=== PATIENT | female | born 1960 | race Caucasian/White ===

== ENCOUNTER 2021-04-12 10:37 | Outpatient (REF) | payer OTHER, SELFPAY ==
--- NOTE | 2021-04-12 10:45 | MHC.AU.P13 ---
Hearing Instrument Problem Date of Visit: 04/12/21 Right Ear: Emd Teacher: Oticon Model: Xceed 2 BTE UP Serial Number: [id number] Repair Warranty: 04/22/2023 Loss and Damage Warranty: 04/22/2023 Battery Size: 675 Color: [place] Brown Tubing: #13TT Type of Mold: Rahul shell earmold Dispensed By: [facility] Date of Fittin04/13/2020 Left Ear: Emd Teacher: Oticon Model: Xceed 2 BTE UP Serial Number: [id number] Repair Warranty: 04/22/2023 Loss and Damage Warranty: 04/22/2023 Battery Size: 675 Color: [place] Brown Type of Mold: Rahul shell Dispensed By: [facility] Date of Fittin04/13/2020 Follow-Up Summary: Patient dropped off right aid - tubing broke. Hearing aid cleaned and earmold retubed - amplifying clearly. Recommendations: Recommendations: Hearing instrument follow-up or maintenance as needed. Signature: Provider:
== END 2021-04-12 10:38 | disposition home or self-care (01) ==
LOC: HO.HAP 10:37
PROVIDERS: Visit Provider Internal Medicine
DX: Z13.89 Encounter for screening for other disorder (principal)

== ENCOUNTER 2021-04-18 10:09 | Outpatient (REF) | payer SELFPAY | END 2021-04-18 10:10 | disposition home or self-care (01) | LOC: HO.HAP 10:09 | PROVIDERS: Visit Provider Internal Medicine | DX: Z46.1 Encounter for fitting and adjustment of hearing aid (principal); H90.3 Sensorineural hearing loss, bilateral | CPT/HCPCS: 92593 ==

== ENCOUNTER 2022-04-23 13:37 | Outpatient (REF) | payer SELFPAY | END 2022-04-23 13:38 | disposition home or self-care (01) | LOC: HO.HAP 13:37 | PROVIDERS: Visit Provider Internal Medicine | DX: Z13.89 Encounter for screening for other disorder (principal) ==

== ENCOUNTER 2022-09-25 15:58 | Outpatient (REF) | payer SELFPAY ==
--- NOTE | 2022-09-25 16:17 | MHC.AU.HFU ---
Hearing Instrument Follow-Up- Binaural Date of Visit: 09/25/22 Right Ear: Oticon Xceed 2 BTE UP, [id number], chestnut brown Repair Warranty: 04/22/2023 Loss and Damage Warranty: 04/22/2023 Battery Size: 675 Tubing: Tube lock Type of Mold: Rahul shell earmold Dispensed By: [facility] Date of Fittin04/13/2020 Left Ear: Oticon Xceed 2 BTE UP, [id number], [place] Brown Repair Warranty: 04/22/2023 Loss and Damage Warranty: 04/22/2023 Battery Size: 675 Tubing: Tube lock Type of Mold: Rahul shell Dispensed By: [facility] Date of Fittin04/13/2020 Follow-Up Summary: The patient recently got a new iPhone and is having trouble pairing her hearing aids to her new iPhone. I paired the hearing aids to her iPhone with no issue. No other concerns reported at this time. No charge. Diagnosis Code(s): Primary Diagnosis: H90.3 Bilateral Sensorineural Hearing Loss Signature: Provider: Preet Fitzgerald, CCC-A
== END 2022-09-25 15:59 | disposition home or self-care (01) ==
LOC: HO.HAP 15:58
PROVIDERS: Visit Provider Internal Medicine
DX: Z13.89 Encounter for screening for other disorder (principal)

== ENCOUNTER 2023-02-15 14:56 | Outpatient (REF) | payer SELFPAY | END 2023-02-15 14:57 | disposition home or self-care (01) | LOC: HO.HAP 14:56 | PROVIDERS: Visit Provider Internal Medicine | DX: Z13.89 Encounter for screening for other disorder (principal) ==

== ENCOUNTER 2023-04-10 13:49 | Outpatient (REF) | payer SELFPAY ==
--- NOTE | 2023-04-11 09:54 | MHC.AU.HA3 ---
Hearing Instrument Follow-Up- Binaural Date of Visit: 04/10/23 Right Ear: Make, Model, Color, Serial Number: Oticon Xceed 2 BTE UP SN: [id number] Color: [place] brown Asw Specialist Repair Warranty: 04/22/2023 Asw Specialist Loss and Damage Warranty: 04/22/2023 Battery Size: 675 Earmold/Dome/CShell/SlimTip:MicronSonic M45 full shell Dispensed By: [facility] Date of Fittin04/13/2020 Left Ear: Make, Model, Color, Serial Number: Oticon Xceed 2 BTE UP SN: [id number] Color: [place] Brown Asw Specialist Repair Warranty: 04/22/2023 Asw Specialist Loss and Damage Warranty: 04/22/2023 Battery Size: 675 Earmold/Dome/CShell/SlimTip: MicronSonic M45 full shell Dispensed By: [facility] Date of Fittin04/13/2020 Follow-Up Summary: Lina reported that her new ear molds are too hard, tight, and difficult to insert. She had her new ear molds with her but no tubing attached, as she has been wearing her old ear molds. Impressions taken, bilaterally, without incident for remakes. Will reorder in softer M2000 material. Lina also reported the pink and purple swirl colors are too bright and she would prefer more muted colors. Explained these are the colors this ear mold dressage instructor uses and there is no guarantee that the colors will be any duller. Advised changing colors to clear or beige if concerned with brightness; however, Lina wanted to stay with pink and purple swirl and asked for more purple to be swirled in than pink. Recommendations: Patient will be contacted when materials have arrived. Diagnosis Code(s): Primary Diagnosis: H90.3 Bilateral Sensorineural Hearing Loss Signature: Provider: Mendy Esqueda, [facility]
== END 2023-04-10 13:50 | disposition home or self-care (01) ==
LOC: HO.HAP 13:49
PROVIDERS: Visit Provider Internal Medicine
DX: Z13.89 Encounter for screening for other disorder (principal)

== ENCOUNTER 2023-05-22 10:00 | Outpatient (REF) | payer SELFPAY | END 2023-05-22 10:01 | disposition home or self-care (01) | LOC: HO.HAP 10:00 | PROVIDERS: Visit Provider Internal Medicine | DX: Z13.89 Encounter for screening for other disorder (principal) ==

== ENCOUNTER 2023-10-09 15:56 | Outpatient (REF) | payer SELFPAY | END 2023-10-09 15:57 | disposition home or self-care (01) | LOC: HO.HAP 15:56 | PROVIDERS: Visit Provider Internal Medicine | DX: Z13.89 Encounter for screening for other disorder (principal) ==

== ENCOUNTER 2023-10-16 15:42 | Outpatient (REF) | payer SELFPAY | END 2023-10-16 15:43 | disposition home or self-care (01) | LOC: HO.HAP 15:42 | PROVIDERS: Visit Provider Internal Medicine | DX: Z13.89 Encounter for screening for other disorder (principal) ==

== ENCOUNTER 2024-01-21 13:03 | Outpatient (REF) | payer SELFPAY | END 2024-01-21 13:04 | disposition home or self-care (01) | LOC: HO.HAP 13:03 | PROVIDERS: Visit Provider Internal Medicine | DX: Z13.89 Encounter for screening for other disorder (principal) ==

== ENCOUNTER 2024-04-22 13:54 | Outpatient (REF) | payer SELFPAY | END 2024-04-22 13:55 | disposition home or self-care (01) | LOC: HO.HAP 13:54 | PROVIDERS: Visit Provider Internal Medicine | DX: Z13.89 Encounter for screening for other disorder (principal) ==

== ENCOUNTER 2025-02-12 08:30 | Outpatient (REF) | payer SELFPAY ==
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
== END 2025-02-12 08:31 | disposition home or self-care (01) ==
LOC: HO.HAP 08:30
PROVIDERS: Visit Provider Internal Medicine
DX: Z46.1 Encounter for fitting and adjustment of hearing aid (principal); H90.3 Sensorineural hearing loss, bilateral
CPT/HCPCS: 92593; V5266